=== PATIENT | male | born 1940 | race Caucasian/White ===

== ENCOUNTER → 2017-11-22 | Outpatient (CLI) | payer MEDICARE, OTHER ==
[2016-07-16 09:54] VITALS: BP 186/86
[~2017-11-22] MED LIST: ASPIRIN E.C. 8181 MG PO; CO Q-1030 M1 PO; LISINOPRIL10 MG PO
[2017-11-22 10:59] LABS: BUN/CREATININE RATIO 22.5 (6.0-26.0); CALCIUM 9.4 mg/dL (8.4-10.2); POTASSIUM 4.7 mmol/L (3.6-5.0)
== END ==
LOC: LAB 10:37
PROVIDERS: Family Medicine
DX: R00.1 Bradycardia, unspecified (principal); G47.33 Obstructive sleep apnea (adult) (pediatric); J30.9 Allergic rhinitis, unspecified; R06.83 Snoring; Z00.00 Encounter for general adult medical examination without abnormal findings

== ENCOUNTER → 2019-02-13 | Outpatient (CLI) | payer MEDICARE, OTHER ==
[2016-07-16 09:54] VITALS: BP 186/86
[2019-02-13 09:39] LABS: POTASSIUM 4.3 mmol/L (3.5-5.1)
[2019-02-13 09:40] LABS: ALBUMIN 3.8 g/dL (3.4-4.8)
[2019-02-13 09:41] LABS: CALCIUM 9.6 mg/dL (8.3-10.5)
[2019-02-13 09:42] LABS: TOTAL PROTEIN 7.4 g/dL (6.2-8.1)
[2019-02-13 09:44] LABS: TOTAL BILIRUBIN 1.2 mg/dL (0.2-1.2)
== END ==
LOC: LAB 09:19
PROVIDERS: Family Medicine
DX: Z12.5 Encounter for screening for malignant neoplasm of prostate (principal); Z13.6 Encounter for screening for cardiovascular disorders; I10 Essential (primary) hypertension

== ENCOUNTER → 2019-02-20 | Outpatient (CLI) | payer MEDICARE, OTHER ==
[2016-07-16 09:54] VITALS: BP 186/86
== END ==
LOC: RAD 15:10
DX: Z00.00 Encounter for general adult medical examination without abnormal findings (principal); H61.20 Impacted cerumen, unspecified ear; I10 Essential (primary) hypertension; M54.2 Cervicalgia; H90.5 Unspecified sensorineural hearing loss; G47.33 Obstructive sleep apnea (adult) (pediatric); K22.8 Other specified diseases of esophagus

== ENCOUNTER → 2019-03-05 | Outpatient (CLI) | payer MEDICARE, OTHER ==
[2016-07-16 09:54] VITALS: BP 186/86
== END ==
LOC: RAD 12:20
DX: M43.6 Torticollis (principal); E04.9 Nontoxic goiter, unspecified

== ENCOUNTER → 2020-04-07 | Outpatient (CLI) | payer MEDICARE, OTHER ==
[2016-07-16 09:54] VITALS: BP 186/86
== END ==
LOC: AMSURD 10:34
DX: Z00.00 Encounter for general adult medical examination without abnormal findings (principal); I49.3 Ventricular premature depolarization; H61.20 Impacted cerumen, unspecified ear; H90.5 Unspecified sensorineural hearing loss; I10 Essential (primary) hypertension; M54.2 Cervicalgia; R00.1 Bradycardia, unspecified

== ENCOUNTER 2021-05-23 08:31 | Emergency (ER) | payer MEDICARE ==
[~2021-05-23] VITALS: Ht 182.9 cm; Wt 80.8 kg
[2021-05-23] MEDS ORDERED: LOSARTAN POTAS100 MG PO (08:45)
[2021-05-23] MEDS ORDERED: LATANOPROST 2.2.5 ML OU (08:46)
[2021-05-23 09:05] LABS: BASO # 0.07 (0.02-0.10); EOS % 2.9 % (0.0-4.0); HEMATOCRIT 41.2 % (42.0-52.0); HEMOGLOBIN 13.7 g/dL (13.5-18.0); LYMPH# 2.44 (1.50-4.00); MEAN CELL VOLUME 93 fl (78-100); MEAN CORPUSCULAR HEMOGLOBIN 31 pg (27-31); MEAN CORPUSCULAR HGB CONC 33 g/dL (33-37); MEAN PLATELET VOLUME 12.2 fl (7.4-10.4); MONO # 0.96 (0.20-0.80); NEU # 3.14 (1.40-6.50); PLATELET COUNT 80 K/mm3 (130-400); RED BLOOD COUNT 4.42 M/mm3 (4.20-5.60); RED CELL DISTRIBUTION WIDTH 13.3 % (11.5-14.5); WHITE BLOOD COUNT 6.8 K/mm3 (4.8-10.8)
[2021-05-23 09:16] LABS: ALBUMIN 3.8 g/dL (3.4-4.8)
[2021-05-23 09:17] LABS: POTASSIUM 3.9 mmol/L (3.5-5.1); SODIUM 141 mmol/L (136-145)
[2021-05-23 09:18] LABS: CALCIUM 9.9 mg/dL (8.3-10.5)
[2021-05-23 09:19] LABS: GLUCOSE 107 mg/dL (75-110); TOTAL PROTEIN 7.3 g/dL (6.2-8.1)
[2021-05-23 09:20] LABS: CARBON DIOXIDE 25 mmol/L (23-31)
[2021-05-23 09:21] LABS: TOTAL BILIRUBIN 1.2 mg/dL (0.2-1.2)
[2021-05-23 09:24] LABS: AST-SGOT 27 U/L (5-34)
[2021-05-23 09:26] LABS: ALT/SGPT 22 U/L (0-55)
[2021-05-23 09:33] LABS: TROPONIN-I < 0.03 ng/mL (<0.030)
[2021-05-23 09:54] LABS: D-DIMER 0.54 mg/L FEU (0.15-0.50)
[2021-05-23 09:55] LABS: PARTIAL THROMBOPLASTIN TIME 23.4 SECONDS (21.0-32.0)
[2021-05-23 12:33] LABS: URINE APPEARANCE CLEAR; URINE BILIRUBIN NEGATIVE (NEGATIVE); URINE BLOOD TRACE (NEGATIVE); URINE COLOR YELLOW; URINE GLUCOSE NEGATIVE (NEGATIVE); URINE KETONE NEGATIVE (NEGATIVE); URINE LEUKOCYTE ESTERASE NEGATIVE (NEGATIVE); URINE NITRATE NEGATIVE (NEGATIVE); URINE PROTEIN(semi-quant) TRACE mg/dL (NEGATIVE); URINE UROBILINOGEN NORMAL (NORMAL); URINE WBC 0-1 /hpf (0-3)
[2021-05-23] MEDS ORDERED: PRILOSEC 20MG20 MG PO (13:00)
[2021-05-23 13:22] VITALS: BP 149/71
== END 2021-05-23 13:17 | disposition home or self-care (01) ==
LOC: ED 08:31
PROVIDERS: Nurse Practitioner
DX: I20.9 Angina pectoris, unspecified (principal); I10 Essential (primary) hypertension; R91.8 Other nonspecific abnormal finding of lung field; K30 Functional dyspepsia; R79.1 Abnormal coagulation profile; R00.1 Bradycardia, unspecified; Z79.899 Other long term (current) drug therapy
CPT/HCPCS: J7030; Q9967

== ENCOUNTER → 2021-06-22 | Outpatient (CLI) | payer MEDICARE ==
[~2021-06-22] MED LIST changes: +LATANOPROST 2.2.5 ML OU; +LOSARTAN POTAS100 MG PO; +PRILOSEC 20MG20 MG PO
[2021-06-22 08:05] LABS: ALBUMIN 3.8 g/dL (3.4-4.8); POTASSIUM 4.1 mmol/L (3.5-5.1)
[2021-06-22 08:07] LABS: CALCIUM 9.5 mg/dL (8.3-10.5)
[2021-06-22 08:08] LABS: TOTAL PROTEIN 7.3 g/dL (6.2-8.1)
[2021-06-22 08:10] LABS: TOTAL BILIRUBIN 0.8 mg/dL (0.2-1.2)
== END ==
LOC: LAB 07:31
PROVIDERS: Family Medicine
DX: I10 Essential (primary) hypertension (principal)

== ENCOUNTER 2022-01-30 09:51 | Emergency (ER) | payer MEDICARE ==
[~2022-01-30] VITALS: Ht 182.9 cm; Wt 79.5 kg
[~2022-01-30 09:51] MED LIST changes: +LATANOPROST 2.2.5 ML OD; -LATANOPROST 2.2.5 ML OU
[2022-01-30] MEDS ORDERED: BRIMONIDINE TAR10 ML OD (10:06)
[2022-01-30] MEDS ORDERED: TIMOLOL 0.5% OP10 ML OD (10:07)
[2022-01-30 11:23] VITALS: BP 144/72
== END 2022-01-30 11:23 | disposition home or self-care (01) ==
LOC: ED 09:51
DX: M54.2 Cervicalgia (principal); W11.XXXA Fall on and from ladder, initial encounter

== ENCOUNTER 2022-03-08 08:54 | Outpatient (RCR) | payer MEDICARE ==
[~2022-03-08 08:54] MED LIST changes: +BRIMONIDINE TAR10 ML OD; +TIMOLOL 0.5% OP10 ML OD
== END 2022-03-25 | disposition home or self-care (01) ==
LOC: PT
DX: Z00.00 Encounter for general adult medical examination without abnormal findings (principal)

== ENCOUNTER 2022-03-30 11:51 | Outpatient (RCR) | payer MEDICARE | END 2022-04-25 | disposition home or self-care (01) | LOC: PT | DX: Z00.00 Encounter for general adult medical examination without abnormal findings (principal) ==

== ENCOUNTER 2022-06-19 15:59 | Emergency (ER) | payer MEDICARE ==
[~2022-06-19] VITALS: Ht 182.9 cm; Wt 76.8 kg
[2022-06-19 16:37] LABS: BASO # 0.01 K/mm3 (0.02-0.10); EOS # 0.02 K/mm3 (0.04-0.40); EOS % 0.5 % (0.0-4.0); HEMATOCRIT 44.1 % (42.0-52.0); HEMOGLOBIN 14.8 g/dL (13.5-18.0); LYMPH# 1.69 K/mm3 (1.50-4.00); MEAN CELL VOLUME 90 fl (78-100); MEAN CORPUSCULAR HEMOGLOBIN 30 pg (27-31); MEAN CORPUSCULAR HGB CONC 34 g/dL (33-37); MEAN PLATELET VOLUME 11.3 fl (7.4-10.4); MONO # 0.77 K/mm3 (0.20-0.80); NEU # 1.73 K/mm3 (1.40-6.50); PLATELET COUNT 148 K/mm3 (130-400); RED BLOOD COUNT 4.91 M/mm3 (4.20-5.60); RED CELL DISTRIBUTION WIDTH 13.2 % (11.5-14.5); WHITE BLOOD COUNT 4.2 K/mm3 (4.8-10.8)
[2022-06-19 16:44] LABS: ALBUMIN 3.8 g/dL (3.4-4.8); POTASSIUM 4.2 mmol/L (3.5-5.1); SODIUM 139 mmol/L (136-145)
[2022-06-19 16:45] LABS: CALCIUM 9.6 mg/dL (8.3-10.5)
[2022-06-19 16:46] LABS: GLUCOSE 102 mg/dL (75-110)
[2022-06-19 16:47] LABS: TOTAL PROTEIN 7.2 g/dL (6.2-8.1)
[2022-06-19 16:48] LABS: CARBON DIOXIDE 26 mmol/L (23-31)
[2022-06-19 16:52] LABS: AST-SGOT 24 U/L (5-34)
[2022-06-19 16:53] LABS: ALT/SGPT 16 U/L (0-55); MAGNESIUM 2.13 mg/dL (1.60-2.60)
[2022-06-19 17:00] LABS: TROPONIN-I < 0.030 ng/mL (<0.030)
[2022-06-19 17:04] LABS: PROTHROMBIN TIME 10.6 SECONDS (9.0-12.0)
[2022-06-19 17:06] LABS: D-DIMER 0.52 mg/L FEU (0.15-0.50)
[2022-06-19 19:37] VITALS: BP 140/74
== END 2022-06-19 19:57 | disposition short-term general hospital (02) ==
LOC: ED 15:59
PROVIDERS: Physician Assistant
DX: R07.89 Other chest pain (principal); U07.1 COVID-19; R79.1 Abnormal coagulation profile; R00.1 Bradycardia, unspecified; Z28.310 Unvaccinated for COVID-19
CPT/HCPCS: J1644

== ENCOUNTER 2023-12-20 17:01 | Emergency (ER) | payer MEDICARE ==
[~2023-12-20] VITALS: Ht 182.9 cm; Wt 76.2 kg
[2023-12-20 17:26] LABS: BASO # 0.02 K/mm3 (0.02-0.10); EOS # 0.12 K/mm3 (0.04-0.40); EOS % 1.1 % (0.0-4.0); HEMATOCRIT 39.1 % (42.0-52.0); HEMOGLOBIN 12.8 g/dL (13.5-18.0); LYMPH# 1.85 K/mm3 (1.50-4.00); MEAN CELL VOLUME 91 fl (78-100); MEAN CORPUSCULAR HEMOGLOBIN 30 pg (27-31); MEAN CORPUSCULAR HGB CONC 33 g/dL (33-37); MEAN PLATELET VOLUME 10.7 fl (7.4-10.4); MONO # 1.33 K/mm3 (0.20-0.80); NEU # 7.29 K/mm3 (1.40-6.50); PLATELET COUNT 209 K/mm3 (130-400); RED BLOOD COUNT 4.28 M/mm3 (4.20-5.60); RED CELL DISTRIBUTION WIDTH 14.4 % (11.5-14.5); WHITE BLOOD COUNT 10.6 K/mm3 (4.8-10.8)
[2023-12-20] MEDS ORDERED: CLOPIDOGREL75 M2 PO (17:26)
[2023-12-20] MEDS ORDERED: ATORVASTATIN CA40 MG PO (17:28)
[2023-12-20] MEDS ORDERED: dilTIAZem 25 MG/5 ML VIAL IV ONE (17:30)
[2023-12-20 17:36] LABS: ALBUMIN 3.9 g/dL (3.4-4.8)
[2023-12-20 17:37] LABS: CALCIUM 9.9 mg/dL (8.3-10.5)
[2023-12-20 17:38] LABS: TOTAL PROTEIN 6.9 g/dL (6.2-8.1)
[2023-12-20 19:59] LABS: URINE APPEARANCE CLEAR (CLEAR); URINE COLOR YELLOW (YELLOW)
[2023-12-20 20:00] LABS: PH-URINE 5.5 (5.0 - 8.0); URINE BILIRUBIN NEGATIVE (NEGATIVE); URINE GLUCOSE NEGATIVE (NEGATIVE); URINE KETONE NEGATIVE (NEGATIVE); URINE PROTEIN(semi-quant) NEGATIVE (NEGATIVE)
[2023-12-20 20:01] LABS: URINE BLOOD 1+ (NEGATIVE); URINE LEUKOCYTE ESTERASE NEGATIVE (NEGATIVE); URINE NITRATE NEGATIVE (NEGATIVE)
[2023-12-20 20:07] LABS: URINE WBC 0-1 /hpf (0-3)
[2023-12-20 20:35] VITALS: BP 118/63
== END 2023-12-20 20:35 | disposition short-term general hospital (02) ==
LOC: ED 17:01
PROVIDERS: Family Medicine
DX: I48.91 Unspecified atrial fibrillation (principal); R79.89 Other specified abnormal findings of blood chemistry; R00.1 Bradycardia, unspecified

== ENCOUNTER 2024-01-13 13:27 | Emergency (ER) | payer MEDICARE ==
[~2024-01-13 13:27] MED LIST changes: +ATORVASTATIN CA40 MG PO; +CLOPIDOGREL75 M2 PO
[2024-02-18 06:25] LABS: BASO # 0.02 K/mm3 (0.02-0.10); EOS # 0.12 K/mm3 (0.04-0.40); EOS % 2.3 % (0.0-4.0); HEMATOCRIT 37.8 % (42.0-52.0); HEMOGLOBIN 12.3 g/dL (13.5-18.0); LYMPH# 1.61 K/mm3 (1.50-4.00); MEAN CELL VOLUME 91 fl (78-100); MEAN CORPUSCULAR HEMOGLOBIN 30 pg (27-31); MEAN CORPUSCULAR HGB CONC 33 g/dL (33-37); MEAN PLATELET VOLUME 12.1 fl (7.4-10.4); MONO # 0.62 K/mm3 (0.20-0.80); NEU # 2.94 K/mm3 (1.40-6.50); PLATELET COUNT 61 K/mm3 (130-400); RED BLOOD COUNT 4.14 M/mm3 (4.20-5.60); RED CELL DISTRIBUTION WIDTH 14.3 % (11.5-14.5); WHITE BLOOD COUNT 5.3 K/mm3 (4.8-10.8)
[2024-02-18 06:27] LABS: ALT/SGPT 29 U/L (0-55); AST-SGOT 34 U/L (5-34); CARBON DIOXIDE 21 mmol/L (23-31); GLUCOSE 115 mg/dL (75-110); MAGNESIUM 2.26 mg/dL (1.60-2.60); SODIUM 142 mmol/L (136-145); TOTAL BILIRUBIN 0.9 mg/dL (0.2-1.2); TOTAL PROTEIN 6.9 g/dL (6.2-8.1); TROPONIN-I < 0.030 ng/mL (0.00-0.033)
[2024-02-18 06:38] LABS: PARTIAL THROMBOPLASTIN TIME 26.1 SECONDS (21.0-32.0); PROTHROMBIN TIME 11.2 SECONDS (9.0-12.0)
== END 2024-01-13 16:20 ==
LOC: ED 13:27
PROVIDERS: Physician Assistant
DX: R07.9 Chest pain, unspecified (principal)